=== PATIENT | female | born 1955 | race Two or more races ===

== ENCOUNTER 2018-07-30 07:15 | Inpatient (IN) | payer OTHER ==
[~2018-07-30] VITALS: Ht 149.9 cm; Wt 78.0 kg
[2018-07-30] MEDS ORDERED: LOTREL 5-10 MG1 CAP PO (09:21)
[2018-07-30] MEDS ORDERED: DICLOFENAC SODI75 MG PO (09:22)
[2018-07-30] MEDS ORDERED: ATORVASTATIN CA10 MG PO (09:23)
[2018-07-30] MEDS ORDERED: FOSAMAX70 MG PO (09:23)
[2018-07-30] MEDS ORDERED: PROBIOTIC1 EAC1 PO (09:24)
[2018-07-30] MEDS ORDERED: ZYRTEC10 M3 PO (09:24)
== END 2018-08-15 14:56 | DRG 470 ==
LOC: SURG 08-13 06:09 → O/R 08-13 06:09 → SURH 08-13 07:15 → SURG 08-13 14:17
PROVIDERS: ADMIT Orthopaedic Surgery
PROC: 0SRD0J9 Replacement of Left Knee Joint with Synthetic Substitute, Cemented, Open Approach (ICD-10-PCS; principal; 2018-08-13 10:15)
DX: M17.12 Unilateral primary osteoarthritis, left knee (principal); D62 Acute posthemorrhagic anemia; I10 Essential (primary) hypertension; Z96.651 Presence of right artificial knee joint